=== PATIENT | male | born 1995 | race Caucasian/White ===

== ENCOUNTER 2022-04-13 22:49 | Emergency (ER) | payer SELFPAY ==
[~2022-04-13] VITALS: Ht 167.6 cm; Wt 60.5 kg
[2022-04-13 22:50] VITALS: BP 137/92
== END 2022-04-14 02:55 | disposition left against medical advice (07) ==
LOC: M ED 22:49
DX: Z53.21 Procedure and treatment not carried out due to patient leaving prior to being seen by health care provider (principal)